=== PATIENT | female | born 1945 | race Caucasian/White ===

== ENCOUNTER 2016-12-13 19:28 | Emergency (ER) ==
[2016-12-13 19:29] VITALS: BMI 30.2
[2016-12-13 19:35] VITALS: TEMP 98.6
--- NOTE | 2016-12-13 20:04 | ED.PDOC ---
General ED Provider: Dr. NASH SUTTON Chief Complaint: Hand Pain/Injury Stated Complaint: Injured right 5 th finger. has some pain wants to get it checked. Time Seen by Physician: 20:02 Mode of Arrival: Walk-In Information Source: Patient Primary Care Provider: FRANCISCO HUTCHINSON Nursing and Triage Documentation Reviewed and Agree: Yes Musculoskeletal Complaint Exam - Hand/Wrist Complaint/Exam Location of Pain: Reports: Right, Digit #5 Mechanism of Injury: Reports: Trauma Symptoms Are: Still present Onset of Pain: Reports: Immediate Initial Severity: Mild Current Severity: Mild Location: Reports: Diffuse Character: Reports: Aching Alleviating: Reports: None Aggravating: Reports: Movement Associated Signs and Symptoms: Denies: Swelling, Redness, Bruising, Fever, Weakness, Numbness, Tingling Dominant Hand: Right Related Surgical History: Reports: None Hand/Wrist Findings: Absent: Swelling, Ecchymosis, Abnormal contour Differential Diagnoses: Closed Fracture, Sprain Review of Systems - Review Of Systems Constitutional: Reports: No symptoms Eyes: Reports: No symptoms Ears, Nose, Mouth, Throat: Reports: No symptoms Respiratory: Reports: No symptoms Cardiac: Reports: No symptoms GI: Reports: No symptoms : Reports: No symptoms Musculoskeletal: Reports: No symptoms Skin: Reports: No symptoms Neurological: Reports: No symptoms Endocrine: Reports: No symptoms Hematologic/Lymphatic: Reports: No symptoms All Other Systems: Reviewed and Negative Past Medical History - Past Medical History Previously Healthy: Yes Endocrine: Reports: None Cardiovascular: Reports: None Respiratory: Reports: None Hematological: Reports: None Gastrointestinal: Reports: None Genitourinary: Reports: None Neuro/Psych: Reports: None Musculoskeletal: Reports: None Cancer: Reports: Other Last Menstrual Period: na - Surgical History General Surgical History: Reports: Unknown - Family History Family History: Reports: Unknown - Social History Smoking Status: Never smoker Hx Substance Use: No Alcohol Screening: None - Immunizations Tetanus Shot up to Date: No (unknown) Physical Exam - Physical Exam Appearance: Well-appearing, No pain distress, Well-nourished Eyes: CHINTAN, EOMI, Conjunctiva clear ENT: Ears normal, Nose normal, Oropharynx normal Respiratory: Airway patent, Breath sounds clear, Breath sounds equal, Respirations nonlabored Cardiovascular: RRR, Pulses normal, No rub, No murmur GI/: Soft, Nontender, No masses, Bowel sounds normal, No Organomegaly Musculoskeletal: Normal strength, ROM intact, No edema, No calf tenderness Skin: Warm, Dry, Normal color Neurological: Sensation intact, Motor intact, Reflexes intact, Cranial nerves intact, Alert, Oriented Psychiatric: Affect appropriate, Mood appropriate Interpretation - Radiology Interpretation Radiology Interpretation By: Radiologist Radiology Results: Positive Critical Care Note - Critical Care Note Total Time (mins): 0 Course - Course Orders, Labs, Meds: Orders Category Date Time Status FINGER(S) RIGHT MIN 2V Stat RADS 12/13/16 20:01 Completed Vital Signs: Temp Pulse Resp BP Pulse Ox 12/13/16 20:35 147/78 H 12/13/16 19:30 98.6 F 71 18 177/81 H 94 L Departure - Departure Time of Disposition: 20:44 Disposition: HOME SELF-CARE Discharge Problem: Finger fracture, right Qualifiers: Encounter type: initial encounter Finger: little finger Fracture type: closed Phalanx: distal Fracture alignment: displaced Qualified Code(s): S62.636A - Displaced fracture of distal phalanx of right little finger, initial encounter for closed fracture Instructions: Finger Fracture (ED) Condition: Good Pt referred to PMD for follow-up: Yes Additional Instructions: rest tylenol prn need f/u with Ortho. Allergies/Adverse Reactions: Allergies No Known Allergies Allergy (Unverified 12/23/15 19:48) Home Medications: Ambulatory Orders Calcium Carbonate [Calcium] 600 mg PO DAILY 12/23/15 Cholecalciferol (Vitamin D3) [Vitamin D] 2,000 unit PO DAILY 12/23/15 Cyanocobalamin (Vitamin B-12) [Vitamin B-12] 1,000 mcg IM MONTHLY 12/23/15 Denosumab [Prolia] 60 mg SQ DIRECTED 12/23/15 Docusate Sodium [Dulcolax Stool Softener] 100 mg PO DAILY 12/23/15 Ferrous Sulfate [Iron] 325 mg PO DAILY 12/23/15 Genistein [I-Cool] 30 mg PO DAILY 12/23/15 Mirabegron [Myrbetriq] 50 mg PO DAILY 12/23/15 Octreotide Acetate [Sandostatin] 50 mcg SUBCUT ONCE 12/23/15 Polyethylene Glycol 3350 [Miralax] 17 gm PO DAILY 12/23/15 Disposition Discussed With: Patient
--- NOTE | 2016-12-13 20:30 | DI ---
Exam: Three x-rays of the right fifth finger. Comparison: None available. Reason for exam: Pain. FINDINGS: There is a minimally displaced angulated fracture of the right distal tuft. Moderate to s evere degenerative disease is seen in the right distal interphalangeal joint space with joint joint s pace loss and osteophyte formation. No other fracture is seen. No unexplained calcific soft tissue d ensities or radiopaque retained foreign bodies. Impression: 1. Minimally displaced fracture of the right fifth tuft. 2. 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
[2016-12-13 20:35] VITALS: BP 147/78
== END 2016-12-13 21:19 | disposition home or self-care (01) ==
LOC: ED 19:28
DX: S62.636A Displaced fracture of distal phalanx of right little finger, initial encounter for closed fracture (principal)
CPT/HCPCS: 99282